=== PATIENT | female | born 1985 | race Caucasian/White ===

== ENCOUNTER 2018-08-22 10:25 | Observation (INO) | payer OTHER, MEDICAID ==
[2018-08-22] MEDS: RINGERS SOLUTION,LACTATED 1,000 ML IV PRN ×3 (10:55→13:17)
[2018-08-22 11:15] LABS: APPEARANCE,URINE CLEAR; BILIRUBIN,URINE NEGATIVE (NEGATIVE); COLOR,URINE STRAW; GLUCOSE, URINE NEGATIVE (NEGATIVE); KETONES,URINE NEGATIVE (NEGATIVE); LEUKOCYTE ESTERASE,URINE NEGATIVE (NEGATIVE); NITRITE,URINE NEGATIVE (NEGATIVE); PROTEIN,URINE NEGATIVE (NEGATIVE); URINE SPECIFIC GRAVITY 1.006; UROBILINOGEN,URINE NEGATIVE mg/dL (<2.0)
[2018-08-22] MEDS ORDERED: NIFEDIPINE 10 MG CAPSULE PO ONE (11:18)
[2018-08-22] MEDS ORDERED: NIFEDIPINE 10 MG CAPSULE ONE (11:20)
[2018-08-22 11:33] LABS: URINE AMPHETAMINES SCREEN NEGATIVE; URINE BARBITURATES SCREEN NEGATIVE; URINE BENZODIAZEPINES SCREEN NEGATIVE; URINE COCAINE SCREEN NEGATIVE; URINE MARIJUANA (THC) SCREEN NEGATIVE; URINE METHADONE SCREEN NEGATIVE; URINE PHENCYCLIDINE SCREEN NEGATIVE
--- NOTE | 2018-08-22 12:09 | RADIOLOGY REPORT (SQ) ---
EXAM DESCRIPTION: U/S OB LIMITED COMPLETED DATE/TIME: 08/22/2018 11:38 am REASON FOR STUDY: contractions COMPARISON: None. TECHNIQUE: Limited transabdominal grayscale ultrasound for evaluation of specific requested obstetri timmy parameters. LIMITATIONS: None. FINDINGS: CERVICAL LENGTH: 4.3 cm. Closed. CK: 12 cm. FHR: 153 beats per minute. PRESENTATION: Cephalic. PLACENTA: Posterior without evidence of abruption or previa. ANATOMY: Not assessed OTHER: No other significant findings. IMPRESSION: LIMITED OBSTETRICAL ULTRASOUND WITH MEASURED PARAMETERS DELINEATED ABOVE. Trimester of : Third trimester - 28 weeks to delivery. TECHNICAL DOCUMENTATION: JOB ID: [id number] [employer]- All Rights Reserved Reading location - IP/workstation name: [email or web address]
[2018-08-22] MEDS ORDERED: TERBUTALINE SULFATE INJ/PF 1 MG/1 ML SDV SUBCUT ONE (12:24)
[2018-08-22] MEDS ORDERED: BETAMET ACET/BETAMET NA INJ 6 MG/1 ML IM ONE (12:24)
[2018-08-22] MEDS ORDERED: TERBUTALINE SULFATE INJ/PF 1 MG/1 ML SDV ONE (12:46)
[2018-08-22] MEDS ORDERED: BETAMET ACET/BETAMET NA INJ 6 MG/1 ML ONE (12:47)
[2018-08-22] MEDS ORDERED: MAGNESIUM SULFATE 4 GM/100 ML RTUPB IV ONE ×2 (14:13)
[2018-08-22] MEDS ORDERED: MAGNESIUM SULFATE 20 GM/500 ML RTUINJ IV ONE (14:13)
[2018-08-22 14:39] LABS: ABSOLUTE BASOPHILS # (AUTO) 0.1 10^3/uL (0.0-0.2); ABSOLUTE MONOCYTES (AUTO) 0.5 10^3/uL (0.1-1.4); BASOPHILS % (AUTO) 0.8 % (0-2); EOSINOPHILS % (AUTO) 0.1 % (0-6); HEMATOCRIT 26.7 % (36.0-47.0); HEMOGLOBIN 8.8 g/dL (12.0-15.5); LYMPHOCYTES % (AUTO) 7.3 % (13-45); MEAN CORPUSCULAR HEMOGLOBIN 23.8 pg (27.0-33.4); MEAN CORPUSCULAR VOLUME 72 fl (80-97); MONOCYTES % (AUTO) 3.4 % (3-13); PLATELET COUNT 214 10^3/uL (150-450); RED CELL DISTRIBUTION WIDTH 15.9 % (11.5-14.0); SEGMENTED NEUTROPHILS % (AUTO) 88.4 % (42-78); TOTAL CELLS COUNTED % (AUTO) 100 %; WHITE BLOOD COUNT 13.6 10^3/uL (4.0-10.5)
[2018-08-22] MEDS: MAGNESIUM SULFATE 20 GM/500 ML RTUINJ IV PRN (14:50)
--- NOTE | 2018-08-22 16:29 | Admission Physical ---
Datetime Report Generated by CPN: 08/22/2018 16:28 CURRENT ADMISSION Chief Complaint: Uterine Contractions Indication for Induction: Not Applicable Admit Impression : , Intrauterine Admit Plan: Admit to Unit; Initiate Labor Protocol ALLERGIES Medication Allergies: No Medication Allergies: No Known Allergies (08/22/2018) Latex: No Latex Allergies Food Allergies: None Environmental Allergies: none OBSTETRICAL HISTORY EDC: 11/01/2018 00:00 : 4 Para: 2 : 2 SAB: 1 Livin Cesareans: 0 Gestational Diabetes: No Rh Sensitization: No Incompetent Cervix: No BEN: No Infertility: No ART Treatment: No Uterine Anomaly: No IUGR: No Hx Previous C/S: No Macrosomia: No Hx Loss/Stillborn: No PIH: No Hx : No Placenta Previa/Abruption: No Depression/PP Depression: Yes PTL/PROM: Yes Post Hemorrhage: No Current Procedures: Ultrasound; NST Obstetrical History Comments: G1- 2006, SAB G2- 2013, 34 weeks, PTL, PROM, PTD, NICU x 1 month G3- 2016, 32 weeks, PTL, PROM, PTD G4- Current SEE RECORDS Alcohol: No Marijuana : No Cocaine: No Other Illicit Drugs: No Cigarettes: Never Smoker. [id number] MEDICAL HISTORY Diabetes: No Blood Transfusion: No Pulmonary Disease (Asthma, TB): No Breast Disease: No Hypertension: No Tack Puller Surgery: No Heart Disease: No Hosp/Surgery: No Autoimmune Disorder: No Anesthetic Complications: No Kidney Disease: No Abnormal Pap Smear: No Neuro/Epilepsy: No Psychiatric Disorders: No Other Medical Diseases: No Hepatitis/Liver Disease: No Significant Family History: No Varicosities/Phlebitis: No Trauma/Violence : No Thyroid Dysfunction: Yes Medical History Comments: Depression 2016, Thyroid elevated TSH and on synthroid, Hospitalizations for childbirth. INFECTIOUS HISTORY Gonorrhea: No Genital Herpes: No Chlamydia: No Tuberculosis: No Syphilis: No Hepatitis: No HIV/AIDS Exposure: No Rash or Viral Illness: No HPV: No PHYSICAL EXAM General: Normal HEENT: Normal Neurologic: Normal Thyroid: Deferred Heart: Normal Lungs: Normal Breast: Deferred Back: Normal Abdomen: Normal Genitourinary Exam: Normal Extremities: Normal DTRs: Normal Pelvic Type: Adequate Physical Exam Comments: pelvis proven to 5#9 Vital Signs: Reviewed; Within Normal Limits VAGINAL EXAM Dilatation: 1 Effacement: 0 Station: -3 Contraction Comments: q4-6 mins FETUS A EGA: 29.6 Monitoring: External US FHR- Baseline: 135 Variability: Moderate 6-25bpm Accelerations: 15X15 Decelerations: None FHR Category: Category I Estimated Weight (gm): 1400 Presentation: Vertex Presentation- Other: by sono Admit Comment: with previous deliveries at 19w 32w and 34w presented at 29+6 with contractions q2 mins, painful. she was given procardia 10mg po, terbutaline 0.25 subcutaneously and betamethasone 12mg IM at 1255. c/w dr reid-pt started on magnesium sulfate for PTL and neurophophylaxis. after magnesium started, contractions spaced to 6mins apart and decreased pain. GBS culture sent to lab. PLANS FOR LABOR AND DELIVERY Labor and Delivery: None Pain Management: Natural Feeding Preference: Formula Benefit of Breast Feed Discussed: Yes Circumcision: N/A INFORMED CONSENT Assignment: Adriana Reid MD Signature: with User ID: [email or web address] : with User ID: [email or web address]
[2018-08-22] MEDS ORDERED: MAG HYDROX/AL HYDROX/SIMETH SUSP 30 ML UDCUP ONE (21:37)
[2018-08-23] MEDS ORDERED: MAGNESIUM SULFATE 20 GM/500 ML RTUINJ IV ONE (01:09)
[2018-08-23] MEDS: MAGNESIUM SULFATE 20 GM/500 ML RTUINJ IV PRN (01:11)
[2018-08-23] MEDS: RINGERS SOLUTION,LACTATED 1,000 ML IV PRN (01:14)
[2018-08-23] MEDS ORDERED: LEVOTHYROXINE SODIUM 0.075 MG TABLET ONE (05:16)
[2018-08-23] MEDS ORDERED: LEVOTHYROXINE SODIUM 0.075 MG TABLET PO SCH (06:00)
[2018-08-23] MEDS ORDERED: BETAMET ACET/BETAMET NA INJ 6 MG/1 ML ONE (12:23)
[2018-08-23] MEDS ORDERED: BETAMET ACET/BETAMET NA INJ 6 MG/1 ML IM ONE (12:30)
--- NOTE | 2018-08-27 07:39 | PDOC DISCHARGE SUMMARY ---
General - Admit/Disc Date/PCP Admission Date/Primary Care Provider: 08/22/18 14:12 Discharge Date: 08/23/18 - Discharge Diagnosis (1) uterine contractions in second trimester, antepartum Is this a current diagnosis for this admission?: Yes - Additional Information Discharge Diet: Regular Discharge Activity: Activity As Tolerated, Pelvic Rest Home Medications: Levothyroxine Sodium [Synthroid 0.075 mg Tablet] 0.075 mg PO DAILY 08/22/18 Pantoprazole Sodium [Protonix] 40 mg PO DAILY 08/22/18 Vit No.130/Iron/Folic [ Vitamins] 1 each PO DAILY 08/22/18 History of Present Illness History of Present Illness: GARLAND LAWSON is a 33 year old female presented to L&D complaining of contractions. Patient stated that she had a history of 2 deliveries. Patient denies spontaneous rupture membranes or leakage of fluid. Patient reported good movement. Hospital Course Hospital Course: Patient was placed on magnesium sulfate until her contractions spaced out. In the meantime, she was given betamethasone 12 mg IM x2, 24 hours apart. On day #2, the patient was weaned down from 2 mg of magnesium sulfate to 1 g and the magnesium was discontinued at approximately 12 PM. Patient was very anxious to leave. Physical Exam - Physical Exam General appearance: PRESENT: no acute distress Respiratory exam: PRESENT: clear to auscultation tavo Cardiovascular exam: PRESENT: RRR GI/Abdominal exam: PRESENT: normal bowel sounds, soft Extremities exam: ABSENT: calf tenderness, clubbing, full ROM, joint swelling, pedal edema, tenderness, +1 edema, +2 edema, other - Gynecological Exam Cervix: normal - No cervical change Result Laboratory Results: 08/22/18 14:30 Impressions: Obstetrics Ultrasound 08/22/18 10:31 IMPRESSION: LIMITED OBSTETRICAL ULTRASOUND WITH MEASURED PARAMETERS DELINEATED ABOVE. Trimester of : Third trimester - 28 weeks to delivery. Plan Discharge Plan: 1. discharge home 2. Follow-up in the office as soon as possible 3. Strict pelvic rest Time Spent: Less than 30 Minutes
== END 2018-08-23 12:39 | disposition home or self-care (01) ==
LOC: LC 10:25 → INTOOBSV 14:12 → LR 14:12
PROVIDERS: ADMIT Obstetrics & Gynecology; ATTEND Obstetrics & Gynecology
DX: O62.9 Abnormality of forces of labor, unspecified (principal); O09.212 Supervision of pregnancy with history of pre-term labor, second trimester; Z79.899 Other long term (current) drug therapy; O99.282 Endocrine, nutritional and metabolic diseases complicating pregnancy, second trimester; R94.6 Abnormal results of thyroid function studies; Z3A.28 28 weeks gestation of pregnancy
CPT/HCPCS: 94760 ×2; 86900; 86901; 36415; 86850; 85025; 86592; 81001; 87081; 80307; 76815; J3475 ×3; J3490; J0702 ×2; J3105; G0378; G0379

== ENCOUNTER 2018-10-17 03:32 | Inpatient (IN) | payer OTHER, MEDICAID ==
[2018-10-17 04:24] LABS: APPEARANCE,URINE CLOUDY; BILIRUBIN,URINE NEGATIVE (NEGATIVE); COLOR,URINE YELLOW; GLUCOSE, URINE NEGATIVE (NEGATIVE); KETONES,URINE NEGATIVE (NEGATIVE); LEUKOCYTE ESTERASE,URINE SMALL (NEGATIVE); NITRITE,URINE NEGATIVE (NEGATIVE); PROTEIN,URINE 30 mg/dL (NEGATIVE); URINE SPECIFIC GRAVITY 1.015; UROBILINOGEN,URINE NEGATIVE mg/dL (<2.0)
[2018-10-17 04:42] LABS: URINE AMPHETAMINES SCREEN NEGATIVE; URINE BARBITURATES SCREEN NEGATIVE; URINE BENZODIAZEPINES SCREEN NEGATIVE; URINE COCAINE SCREEN NEGATIVE; URINE MARIJUANA (THC) SCREEN NEGATIVE; URINE METHADONE SCREEN NEGATIVE; URINE PHENCYCLIDINE SCREEN NEGATIVE
[2018-10-17] MEDS ORDERED: OXYTOCIN/NORMAL SALINE 20 UNIT/1,000 ML RTUINJ ONE (04:44)
[2018-10-17] MEDS ORDERED: LIDOCAINE 1% INJ-PF (10 MG/ML) 30 ML SDV ONE (04:44)
[2018-10-17] MEDS ORDERED: MISOPROSTOL 0.2 MG TABLET ONE (04:44)
[2018-10-17] MEDS ORDERED: OXYTOCIN 10 UNIT/ML VIAL ONE (04:44)
[2018-10-17] MEDS ORDERED: PHENYLEPHRINE HCL INJ/PF 10 MG/1 ML SDV ONE (04:46)
[2018-10-17] MEDS ORDERED: LIDOCAINE 2%/EPINEPHRINE INJ 20 ML VIAL ONE (04:46)
[2018-10-17] MEDS ORDERED: FENTANYL CITRATE INJ/PF 100 MCG/2 ML AMPUL ONE (04:47)
[2018-10-17] MEDS ORDERED: FENTANYL/BUPIVACAINE/NS/PF 300 MCG/150 ML RTUINJ EPI ONE (04:47)
[2018-10-17] MEDS ORDERED: BUPIVACAINE HCL 0.25 % INJ/PF (2.5 MG/1 ML) 30 ML VIAL ONE (04:47)
[2018-10-17] MEDS ORDERED: EPHEDRINE SULFATE INJ 50 MG/1 ML AMPULE ONE (04:47)
[2018-10-17 05:34] LABS: ABSOLUTE BASOPHILS # (AUTO) 0.1 10^3/uL (0.0-0.2); ABSOLUTE EOSINOPHILS # (AUTO) 0.1 10^3/uL (0.0-0.6); ABSOLUTE LYMPHOCYTES (AUTO) 2.8 10^3/uL (0.5-4.7); ABSOLUTE MONOCYTES (AUTO) 1.1 10^3/uL (0.1-1.4); ABSOLUTE NEUT (AUTO) 6.3 10^3/uL (1.7-8.2); BASOPHILS % (AUTO) 1.1 % (0-2); EOSINOPHILS % (AUTO) 0.7 % (0-6); HEMATOCRIT 26.3 % (36.0-47.0); HEMOGLOBIN 8.6 g/dL (12.0-15.5); LYMPHOCYTES % (AUTO) 26.7 % (13-45); MEAN CORPUSCULAR HEMOGLOBIN 21.2 pg (27.0-33.4); MEAN CORPUSCULAR HGB CONC 32.7 g/dL (32.0-36.0); MEAN CORPUSCULAR VOLUME 65 fl (80-97); MONOCYTES % (AUTO) 10.6 % (3-13); PLATELET COUNT 209 10^3/uL (150-450); RED BLOOD COUNT 4.06 10^6/uL (3.72-5.28); RED CELL DISTRIBUTION WIDTH 17.4 % (11.5-14.0); SEGMENTED NEUTROPHILS % (AUTO) 60.9 % (42-78); TOTAL CELLS COUNTED % (AUTO) 100 %; WHITE BLOOD COUNT 10.3 10^3/uL (4.0-10.5)
--- NOTE | 2018-10-17 05:39 | Admission Physical ---
Datetime Report Generated by CPN: 10/17/2018 05:38 CURRENT ADMISSION Chief Complaint: Uterine Contractions; Suspected Ruptured Membranes Indication for Induction: Not Applicable Admit Impression : Term, Intrauterine ; Active Labor; Ruptured Membranes Admit Plan: Admit to Unit; Initiate Labor Protocol ALLERGIES Medication Allergies: No Medication Allergies: No Known Allergies (10/17/2018) Latex: Unknown Food Allergies: None Environmental Allergies: none OBSTETRICAL HISTORY EDC: 11/01/2018 00:00 : 4 Para: 2 Term: 0 : 2 SAB: 1 IAB: 0 Ectopic: 0 Livin Cesareans: 0 VBACs: 0 Multiple Births: 0 Gestational Diabetes: No Rh Sensitization: No Incompetent Cervix: No BEN: No Infertility: No ART Treatment: No Uterine Anomaly: No IUGR: No Hx Previous C/S: No Macrosomia: No Hx Loss/Stillborn: No PIH: No Hx : No Placenta Previa/Abruption: No Depression/PP Depression: Yes PTL/PROM: Yes Post Hemorrhage: No Current Procedures: Ultrasound; NST Obstetrical History Comments: G1- 2006, SAB G2- 2013, 34 weeks, PTL, PROM, PTD, NICU x 1 month G3- 2016, 32 weeks, PTL, PROM, PTD G4- Current SEE RECORDS Alcohol: No Marijuana : No Cocaine: No Other Illicit Drugs: No Cigarettes: Never Smoker. [id number] MEDICAL HISTORY Diabetes: No Blood Transfusion: No Pulmonary Disease (Asthma, TB): No Breast Disease: No Hypertension: No Fast Food Worker Surgery: No Heart Disease: No Hosp/Surgery: No Autoimmune Disorder: No Anesthetic Complications: No Kidney Disease: No Abnormal Pap Smear: No Neuro/Epilepsy: No Psychiatric Disorders: No Other Medical Diseases: No Hepatitis/Liver Disease: No Significant Family History: No Varicosities/Phlebitis: No Trauma/Violence : No Thyroid Dysfunction: Yes Medical History Comments: Depression 2016, Thyroid elevated TSH and on synthroid, Hospitalizations for childbirth. INFECTIOUS HISTORY Gonorrhea: No Genital Herpes: No Chlamydia: No Tuberculosis: No Syphilis: No Hepatitis: No HIV/AIDS Exposure: No Rash or Viral Illness: No HPV: No PHYSICAL EXAM General: Normal HEENT: Normal Neurologic: Normal Thyroid: Normal Heart: Normal Lungs: Normal Breast: Normal Back: Normal Abdomen: Normal Genitourinary Exam: Normal Extremities: Normal DTRs: Normal Pelvic Type: Adequate Physical Exam Comments: pelvis proven to 5#9 Vital Signs: Reviewed; Within Normal Limits VAGINAL EXAM Dilatation: 7 Effacement: 90 Station: -1 Contraction Comments: q4-6 mins MEMBRANES Pooling: Positive Membranes: Ruptured Amniotic Fluid Color: Clear FETUS A EGA: 37.6 Monitoring: External US FHR- Baseline: 130 Variability: Moderate 6-25bpm Accelerations: 15X15 Decelerations: None FHR Category: Category I Estimated Weight (gm): 3500 Presentation: Vertex Presentation- Other: by sono Admit Comment: with previous deliveries at 19w 32w and 34w presented at 29+6 with contractions q2 mins, painful. she was given procardia 10mg po, terbutaline 0.25 subcutaneously and betamethasone 12mg IM at 1255. c/w dr reid-pt started on magnesium sulfate for PTL and neurophophylaxis. after magnesium started, contractions spaced to 6mins apart and decreased pain. GBS culture sent to lab. PLANS FOR LABOR AND DELIVERY Labor and Delivery: None Pain Management: Natural Feeding Preference: Formula Benefit of Breast Feed Discussed: Yes Circumcision: N/A INFORMED CONSENT Assignment: Adriana Reid MD Signature: with User ID: [email or web address] : with User ID: [email or web address]
[2018-10-17] MEDS ORDERED: OXYTOCIN/NORMAL SALINE 20 UNIT/1,000 ML RTUINJ IV PRN ×2 (07:27→07:58)
[2018-10-17 07:44] LABS: ANISOCYTOSIS 1+; HYPOCHROMASIA 1+; OVALOCYTES 1+; PLATELET COMMENT ADEQUATE; POIKILOCYTOSIS 1+; POLYCHROMASIA SLIGHT
[2018-10-17] MEDS ORDERED: ZOLPIDEM TARTRATE 5 MG TABLET PO PRN (07:58)
[2018-10-17] MEDS ORDERED: DIPH/PERTUSS(ACELL)/TETANUS VAC/PF 0.5 ML SYR (>=10YO) IM PRN (07:58)
[2018-10-17] MEDS ORDERED: PROMETHAZINE HCL INJ 25 MG/1 ML VIAL IV PRN (07:58)
[2018-10-17] MEDS ORDERED: DIBUCAINE 1% OINTMENT 56 GM TP PRN (07:58)
[2018-10-17] MEDS ORDERED: PROMETHAZINE HCL 25 MG SUPP.RECT PR PRN (07:58)
[2018-10-17] MEDS ORDERED: GLYCERIN/WITCH HAZEL LEAF 1 EACH MED..PAD TP PRN (07:58)
[2018-10-17] MEDS ORDERED: ACETAMINOPHEN WITH CODEINE #3 TABLET PO PRN ×2 (07:58)
[2018-10-17] MEDS ORDERED: NA PHOS,M-B/NA PHOS,DI-BA (ADULT) 133 ML ENEMA PR PRN (07:58)
[2018-10-17] MEDS ORDERED: DIPHENHYDRAMINE HCL 25 MG CAPSULE PO PRN (07:58)
[2018-10-17] MEDS ORDERED: ACETAMINOPHEN 650 MG SUPP.RECT PR PRN (07:58)
[2018-10-17] MEDS ORDERED: MEASLES,MUMPS&RUBELLA VACC/PF 0.5 ML VIAL SUBCUT PRN (07:58)
[2018-10-17] MEDS ORDERED: PSEUDOEPHEDRINE HCL 30 MG TABLET PO PRN (07:58)
[2018-10-17] MEDS ORDERED: MAGNESIUM HYDROXIDE SUSP 30 ML UDCUP PO PRN (07:58)
[2018-10-17] MEDS ORDERED: PROMETHAZINE HCL 25 MG TABLET PO PRN (07:58)
[2018-10-17] MEDS ORDERED: BENZOCAINE/MENTHOL AEROSOL SPRAY 56 ML TOP PRN (07:58)
--- NOTE | 2018-10-17 08:26 | Warning Signs in Babies ---
VOD Warning Signs Datetime Report Generated by [facility]: 10/17/2018 08:25 VOD#608 -Warning Signs in Babies: Viewed with Parent(s)/Family (08/22/2018 10:30:WILMAN Camejo)
--- NOTE | 2018-10-17 09:02 | Warning Signs in Babies ---
VOD Warning Signs Datetime Report Generated by [facility]: 10/17/2018 09:02 VOD#608 -Warning Signs in Babies: Viewed with Parent(s)/Family (10/17/2018 07:42:WILMAN Camejo)
[2018-10-17] MEDS ORDERED: PRENATAL VITAMIN W DHA CAPSULE PO ONE (10:25)
[2018-10-17] MEDS ORDERED: SENNOSIDES/DOCUSATE 8.6-50 MG 1 EACH TABLET ONE ×2 (10:25→10:29)
[2018-10-17] MEDS ORDERED: DOCUSATE SODIUM 100 MG CAPSULE ONE (10:26)
[2018-10-17] MEDS ORDERED: FAMOTIDINE 20 MG TABLET ONE (10:26)
[2018-10-17] MEDS ORDERED: FERROUS SULFATE 325 MG TABLET PO ONE (10:26)
--- NOTE | 2018-10-17 12:19 | Delivery Summary ---
Del Sum A-C Datetime Report Generated by CPN: 10/17/2018 12:19 DELIVERY PERSONNEL DELIVERY PERSONNEL: [id number] Delivery Doctor:: Maritza Mendze MD Labor and Delivery Nurse:: WILMAN Camejo Labor and Delivery Nurse:: Zuleika Mendez RN Student Observers:: Larissa Norton RN Contact Centre Supervisor/HOOKER LASTER: Bozena Millsillo, SCHOOL BUS DRIVER MATERNAL INFORMATION Delivery Anesthesia: Epidural Medications After Delivery: Pitocin Drip 20 Units/1000ml NSS Meds After Delivery Comment: Pitocin 20 units in 1 L NS bolusing per order Estimated Blood Loss (ml): 200 Maternal Complications: Precipitous Labor (<3hrs) LABOR SUMMARY EDC: 11/01/2018 00:00 No. Babies in Womb: 1 Attempted: No Labor Anesthesia: None LABOR INFORMATION Reason for Induction: Not Applicable Onset of Labor: 10/17/2018 03:00 Complete Dilatation: 10/17/2018 02:30 Oxytocin: N/A Group B Beta Strep: Negative Antibiotics # of Doses: 0 Antibiotics Time of Last Dose: N/A Name of Antibiotic Given: N/A Steroids Given: None Reason Steroids Not Administered: Not Applicable MEMBRANES Membranes Rupture Method: Spontaneous Rupture of Membranes: 10/17/2018 02:30 Length of Rupture (hr): 5.32 Amniotic Fluid Color: Clear Amniotic Fluid Amount: Moderate Amniotic Fluid Odor: Normal STAGES OF LABOR Stage 1 hr: 0 Stage 1 min: -30 Stage 2 hr: 5 Stage 2 min: 19 Stage 3 hr: 0 Stage 3 min: 4 Total Time in Labor hr: 4 Total Time in Labor min: 53 VAGINAL DELIVERY Episiotomy: None Laceration #1: None Laceration Extension #1: N/A Laceration Repair: Not Applicable Sponge Count Correct: Yes Sharps Count Correct: Yes CSECTION DELIVERY Primary Indication: N/A Secondary Indication: N/A CSection Incidence: N/A Labor: N/A Elective: N/A CSection Incision: N/A BABY A INFORMATION Infant Delivery Date/Time: 10/17/2018 07:49 Method of Delivery: Vaginal Born in Route : No : N/A Forceps: N/A Vacuum Extraction: N/A Shoulder Dystocia : No PRESENTATION/POSITION BABY A Presentation: Cephalic Cephalic Presentation: Vertex Vertex Position: Right Occipital Anterior Breech Presentation: N/A PLACENTA INFORMATION BABY A Placenta Delivery Time : 10/17/2018 07:53 Placenta Method of Delivery: Spontaneous Placenta Status: Delivered SCORES BABY A Heart Rate 1 min: >100 bpm Resp Effort 1 min: Good Cry Reflex Irritability 1 min: Cough or Sneeze or Pulls Away Muscle Tone 1 min: Active Motion Color 1 min: Blue/Pale Resuscitation Effort 1 min: Tactile Stimulation SCORE 1 MIN: 8 Heart Rate 5 min: >100 bpm Resp Effort 5 min: Good Cry Reflex Irritability 5 min: Cough or Sneeze or Pulls Away Muscle Tone 5 min: Active Motion Color 5 min: Body Gallant, Extremities Blue Resuscitation Effort 5 min: N/A SCORE 5 MIN: 9 INFANT INFORMATION BABY A Gestational Age at Delivery: 37.6 Gestational Status: Early Term- 37- 38.6 Weeks Outcome : Liveborn Condition : Stable Infant Sex: Female IDENTIFICATION BABY A Infant Verification Date/Time: 10/17/2018 08:25 ID Band Number: [id number] Mother's Name Verified: Yes Infant RN Verifying Infant: moreluisa valladares rnc Additional Verifying Personnel: larissa norton rn WEIGHT/LENGTH BABY A Infant Birthweight (gm): 3470 Infant Weight (lb): 7 Infant Weight (oz): 10 Length (in): 19.75 Length (cm): 50.17 CORD INFORMATION BABY A No. Cord Vessels: 3 Nuchal Cord : N/A Cord Blood Taken: Yes-For Storage (Mom's Blood type +) Infant Suction: None ASSESSMENT BABY A Complications: None Physical Findings at Delivery: Within Normal Limits Infant Respirations: Appears Normal Skin to Skin: Yes Skin to Skin Time (min): 45 Health Evaluator/ALS Called : No Care By: Brandy Mendez RN Transferred To: Remains with Mother BABY B INFORMATION : N/A SIGNATURES : I was personally available for consultation and serving as supervising physician for the MLP.
[2018-10-17] MEDS: FAMOTIDINE 20 MG TABLET PO SCH ×2 (12:37→22:24)
[2018-10-17] MEDS: FERROUS SULFATE 325 MG TABLET PO SCH ×2 (12:37→17:34)
[2018-10-17] MEDS: DOCUSATE SODIUM 100 MG CAPSULE PO SCH ×2 (12:37→17:33)
[2018-10-17] MEDS: PRENATAL VITAMIN W DHA CAPSULE PO SCH (12:38)
[2018-10-17] MEDS: SENNOSIDES/DOCUSATE 8.6-50 MG 1 EACH TABLET PO SCH (12:38)
[2018-10-17] MEDS ORDERED: IBUPROFEN 800 MG TABLET ONE (14:05)
[2018-10-17] MEDS: IBUPROFEN 800 MG TABLET PO SCH ×2 (14:08→22:24)
[2018-10-18] MEDS: IBUPROFEN 800 MG TABLET PO SCH ×2 (05:16→14:46)
[2018-10-18 08:14] LABS: HEMATOCRIT 24.7 % (36.0-47.0); MEAN CORPUSCULAR HEMOGLOBIN 20.9 pg (27.0-33.4); MEAN CORPUSCULAR HGB CONC 31.9 g/dL (32.0-36.0); MEAN CORPUSCULAR VOLUME 66 fl (80-97); PLATELET COUNT 153 10^3/uL (150-450); RED BLOOD COUNT 3.77 10^6/uL (3.72-5.28); RED CELL DISTRIBUTION WIDTH 17.7 % (11.5-14.0); WHITE BLOOD COUNT 11.9 10^3/uL (4.0-10.5)
[2018-10-18 08:15] LABS: HEMOGLOBIN 7.9 g/dL (12.0-15.5)
[2018-10-18] MEDS: DOCUSATE SODIUM 100 MG CAPSULE PO SCH ×2 (09:26→18:14)
[2018-10-18] MEDS: PRENATAL VITAMIN W DHA CAPSULE PO SCH (09:26)
[2018-10-18] MEDS: FAMOTIDINE 20 MG TABLET PO SCH (09:26)
[2018-10-18] MEDS: FERROUS SULFATE 325 MG TABLET PO SCH ×2 (09:26→18:14)
[2018-10-18] MEDS: SENNOSIDES/DOCUSATE 8.6-50 MG 1 EACH TABLET PO SCH (09:27)
[2018-10-18] MEDS ORDERED: MEASLES,MUMPS&RUBELLA VACC/PF 0.5 ML VIAL SUBCUT PRN (10:30)
[2018-10-18] MEDS ORDERED: ZOLPIDEM TARTRATE 5 MG TABLET PO PRN (10:30)
[2018-10-18] MEDS ORDERED: PROMETHAZINE HCL INJ 25 MG/1 ML VIAL IV PRN (10:30)
[2018-10-18] MEDS ORDERED: IRON SUCROSE COMPLEX INJ/PF 100 MG/5 ML SDV IV ONE (11:00)
--- NOTE | 2018-10-18 12:50 | PDOC PROGRESS REPORT ---
Subjective-OB Progress Note for:: 10/18/18 - PP day #1, A+ Rubella Immune, bottlefeeding, anemia . Pt refused iron transfussion ordered by Dr Miller today. Subjective: Pt states she would like to go home today Physical Exam (OB) Vital Signs: Temp Pulse Resp BP Pulse Ox 98.5 F 65 16 117/75 98 10/18/18 08:01 10/18/18 08:01 10/18/18 08:01 10/18/18 08:01 10/18/18 08:01 Intake & Output 10/17/18 10/18/18 10/19/18 06:59 06:59 06:59 Weight 83.5 kg - General General Appearance: Appears well, Alert In distress: None - PIH/Pre-Eclampsia DTR's: 2 + Clonus: Negative Headache: Absent Epigastric Pain: No Visual Changes: No - Lochia Lochia Amount: Small 10-25 ml Lochia Color: Rubra/Red - Abdomen Description: Soft, Round Hernia Present: No Fundal Description: Firm, Midline Fundal Height: u/u - u/2 - Respiratory Respiratory Status: No respiratory distress - Abdominal Inspection: Normal Distension: No distension - Genitourinary Genitourinary Note: voiding - Extremities Upper extremity: Normal inspection Lower extremities: Normal inspection - Neurological Cognition: Normal Orientation: AAOx4 - Psychological Associated symptoms: Normal affect, Normal mood - Skin Skin Temperature: Warm Skin Moisture: Dry Objective-Diagnostic Laboratory: 10/18/18 07:20 10/18/18 07:20 WBC 11.9 H RBC 3.77 Hgb 7.9 L Hct 24.7 L MCV 66 L MCH 20.9 L MCHC 31.9 L RDW 17.7 H Plt Count 153 Assessment and Plan(PN) - Assessment and Plan (1) (normal spontaneous vaginal delivery) Is this a current diagnosis for this admission?: Yes (2) Anemia affecting Qualifiers: Trimester: third trimester Qualified Code(s): O99.013 - Anemia complicating , third trimester Is this a current diagnosis for this admission?: Yes - Time Spent with Patient Time with patient: Less than 15 minutes - Will not send pt home today since no iron infusion was done. Will see how pt tolerates her low hemaglobin today, then plan to d/c home tomorrow. Plan reviewed w/ Dr Miller. Medications reviewed and adjusted accordingly: Yes - Disposition Anticipated Discharge: Home Within: within 24 hours
[2018-10-18 20:46] VITALS: BP 124/62
--- NOTE | 2018-10-22 12:40 | PDOC DISCHARGE SUMMARY ---
General - Admit/Disc Date/PCP Admission Date/Primary Care Provider: 10/17/18 04:32 Discharge Date: 10/18/18 - Discharge Diagnosis (1) Anemia affecting Is this a current diagnosis for this admission?: Yes (2) (normal spontaneous vaginal delivery) Is this a current diagnosis for this admission?: Yes (3) uterine contractions in second trimester, antepartum Is this a current diagnosis for this admission?: No - Additional Information Discharge Diet: Regular Discharge Activity: Activity As Tolerated, No Lifting Over 10 Pounds, No Lifting /Push/Pulling Home Medications: Levothyroxine Sodium [Synthroid 0.075 mg Tablet] 0.075 mg PO DAILY 08/22/18 Pantoprazole Sodium [Protonix] 40 mg PO DAILY 08/22/18 Vit No.130/Iron/Folic [ Vitamins] 1 each PO DAILY 08/22/18 History of Present Illness Patient complains of: contractions History of Present Illness: GARLAND NICOLAS is a 33 year old presented to L&D c/o contractions. She has an IUP a4 37.6 weeks. She believes that her water may have broken. Physical Exam - Physical Exam Vital Signs: Temp Pulse Resp BP Pulse Ox 98.5 F 65 16 124/62 98 10/18/18 20:35 10/18/18 20:35 10/18/18 20:35 10/18/18 20:35 10/18/18 20:35 General appearance: PRESENT: no acute distress Respiratory exam: PRESENT: clear to auscultation tavo Cardiovascular exam: PRESENT: RRR, tachycardia GI/Abdominal exam: PRESENT: normal bowel sounds, soft Musculoskeletal exam: ABSENT: ambulatory, deformity, dislocation, full ROM, normal inspection, tenderness, other Result Laboratory Results: 10/18/18 07:20 Plan Discharge Plan: 1. Discharge home 2. Continue iron Time Spent: Less than 30 Minutes
== END 2018-10-18 21:10 | disposition home or self-care (01) | DRG 807 ==
LOC: LC 03:32 → LR 04:32 → 2N 14:30
PROVIDERS: ADMIT Obstetrics & Gynecology; ATTEND Obstetrics & Gynecology
PROC: 10E0XZZ Delivery of Products of Conception, External Approach (ICD-10-PCS; principal; 2018-10-17)
PROC: 4A1HXCZ Monitoring of Products of Conception, Cardiac Rate, External Approach (ICD-10-PCS; 2018-10-17)
PROC: 3E0234Z Introduction of Serum, Toxoid and Vaccine into Muscle, Percutaneous Approach (ICD-10-PCS; 2018-10-18)
DX: O62.3 Precipitate labor (principal); Z37.0 Single live birth; O99.02 Anemia complicating childbirth; D64.9 Anemia, unspecified; Z28.21 Immunization not carried out because of patient refusal; Z3A.37 37 weeks gestation of pregnancy
CPT/HCPCS: 36415; 80307; 81005; 84112; 85025; 85027; 86592; 86850; 86900; 86901; 90715; J2370; J2590; J3010; J3490

== ENCOUNTER 2020-01-29 10:19 | Inpatient (IN) | payer BC, MEDICAID ==
[2020-01-29 10:54] LABS: APPEARANCE,URINE CLOUDY; BILIRUBIN,URINE NEGATIVE (NEGATIVE); COLOR,URINE YELLOW; GLUCOSE, URINE NEGATIVE (NEGATIVE); KETONES,URINE NEGATIVE (NEGATIVE); LEUKOCYTE ESTERASE,URINE SMALL (NEGATIVE); NITRITE,URINE NEGATIVE (NEGATIVE); PROTEIN,URINE 30 mg/dL (NEGATIVE); URINE SPECIFIC GRAVITY 1.014; UROBILINOGEN,URINE NEGATIVE mg/dL (<2.0)
[2020-01-29] MEDS ORDERED: RINGERS SOLUTION,LACTATED 1,000 ML IV ONE (10:55)
[2020-01-29] MEDS ORDERED: RINGERS SOLUTION,LACTATED 1,000 ML IV PRN (10:55)
[2020-01-29] MEDS ORDERED: PENICILLIN G POTASSIUM 5,000,000 UNIT in DEXTROSE 5%-WATER 100 ML IV ONE (10:55)
[2020-01-29] MEDS ORDERED: BETAMET ACET/BETAMET NA INJ 6 MG/1 ML IM ONE (11:08)
--- NOTE | 2020-01-29 11:08 | Admission Physical ---
Datetime Report Generated by CPN: 01/29/2020 11:07 CURRENT ADMISSION Chief Complaint: Suspected Ruptured Membranes Indication for Induction: Not Applicable Admit Impression : , Intrauterine ; No Active Labor; Ruptured Membranes Admit Plan: Admit to Unit; Initiate Labor Protocol ALLERGIES Medication Allergies: No Known Allergies (10/17/2018) OBSTETRICAL HISTORY EDC: 02/24/2020 00:00 : 5 Para: 3 : 3 SAB: 1 Livin PHYSICAL EXAM General: Normal HEENT: Normal Neurologic: Normal Thyroid: Deferred Heart: Normal Lungs: Normal Breast: Deferred Back: Normal Abdomen: Normal Genitourinary Exam: Normal Extremities: Normal DTRs: Normal Pelvic Type: Adequate Vital Signs: Reviewed VAGINAL EXAM Dilatation: 3 Effacement: 50 Station: -2 Contraction Comments: q 2-5 MEMBRANES Membranes: Ruptured Amniotic Fluid Color: Clear FETUS A EGA: 36.2 Monitoring: External US FHR- Baseline: 130 Variability: Moderate 6-25bpm Accelerations: 15X15 Decelerations: None Presentation: Vertex Admit Comment: 34yo at 36+2ega presents for LOF at approx 0300 this am. Clear fluid. GBS unknown. GBS and GC/CT collected. Actimprom positive. H/o PPROM x 2 with PTD x 2. PCN for GBS unknown. NUrsery notified. Cvx favorable. Will begin Pitocin and PCN. Hypothyroid - on synthroid. Admit and anticipate . 1hr GTT 116. H/o anxiety and depression on Wellbutrin - not currently on meds. Will place sr. merchandise planner. INFORMED CONSENT Informed Consent Obtained: Vaginal Delivery; Risks, Benefits and Alternatives Discussed Signature: with User ID: [email or web address]
[2020-01-29] MEDS ORDERED: BETAMET ACET/BETAMET NA INJ 6 MG/1 ML ONE (11:09)
[2020-01-29] MEDS ORDERED: PENICILLIN G-K 5 MILLION UNIT VIAL ONE (11:18)
[2020-01-29 11:27] LABS: URINE AMPHETAMINES SCREEN NEGATIVE; URINE BARBITURATES SCREEN NEGATIVE; URINE BENZODIAZEPINES SCREEN NEGATIVE; URINE COCAINE SCREEN NEGATIVE; URINE MARIJUANA (THC) SCREEN NEGATIVE; URINE METHADONE SCREEN NEGATIVE; URINE PHENCYCLIDINE SCREEN NEGATIVE
[2020-01-29 11:49] LABS: ABSOLUTE BASOPHILS # (AUTO) 0.1 10^3/uL (0.0-0.2); ABSOLUTE EOSINOPHILS # (AUTO) 0.1 10^3/uL (0.0-0.6); ABSOLUTE LYMPHOCYTES (AUTO) 1.7 10^3/uL (0.5-4.7); ABSOLUTE MONOCYTES (AUTO) 0.9 10^3/uL (0.1-1.4); ABSOLUTE NEUT (AUTO) 7.8 10^3/uL (1.7-8.2); BASOPHILS % (AUTO) 0.9 % (0-2); EOSINOPHILS % (AUTO) 0.8 % (0-6); HEMATOCRIT 27.1 % (36.0-47.0); HEMOGLOBIN 8.5 g/dL (12.0-15.5); LYMPHOCYTES % (AUTO) 15.9 % (13-45); MEAN CORPUSCULAR HEMOGLOBIN 20.2 pg (27.0-33.4); MEAN CORPUSCULAR HGB CONC 31.5 g/dL (32.0-36.0); MONOCYTES % (AUTO) 8.5 % (3-13); PLATELET COUNT 215 10^3/uL (150-450); RED BLOOD COUNT 4.22 10^6/uL (3.72-5.28); RED CELL DISTRIBUTION WIDTH 17.1 % (11.5-14.0); SEGMENTED NEUTROPHILS % (AUTO) 73.9 % (42-78); TOTAL CELLS COUNTED % (AUTO) 100 %; WHITE BLOOD COUNT 10.5 10^3/uL (4.0-10.5)
[2020-01-29 11:55] LABS: MEAN CORPUSCULAR VOLUME 64 fl (80-97)
[2020-01-29 12:10] LABS: ANISOCYTOSIS 1+
[2020-01-29 12:11] LABS: PLATELET COMMENT ADEQUATE
[2020-01-29 12:12] LABS: HYPOCHROMASIA SLIGHT; OVALOCYTES SLIGHT; POIKILOCYTOSIS SLIGHT; POLYCHROMASIA SLIGHT
[2020-01-29] MEDS ORDERED: MISOPROSTOL 0.2 MG TABLET ONE (12:53)
[2020-01-29] MEDS ORDERED: OXYTOCIN 10 UNIT/ML VIAL ONE (12:53)
[2020-01-29] MEDS ORDERED: LIDOCAINE 1% INJ-PF (10 MG/ML) 30 ML SDV ONE (12:53)
[2020-01-29] MEDS ORDERED: OXYTOCIN/0.9 % SODIUM CHLORIDE 30 UNIT/500 ML RTUINJ ONE (12:53)
[2020-01-29 12:54] LABS: CHLAM PCR NOT DETECTED (NOT DETECT)
[2020-01-29] MEDS ORDERED: OXYTOCIN/0.9 % SODIUM CHLORIDE 30 UNIT/500 ML RTUINJ IV PRN ×2 (13:23→15:59)
--- NOTE | 2020-01-29 14:15 | Warning Signs in Babies ---
VOD Warning Signs Datetime Report Generated by N: 01/29/2020 14:15 VOD#608 -Warning Signs in Babies: Viewed with Parent(s)/Family (01/29/2020 10:31:Yosvany Gonzalez RN)
--- NOTE | 2020-01-29 14:17 | Warning Signs in Babies ---
VOD Warning Signs Datetime Report Generated by N: 01/29/2020 14:17 VOD#608 -Warning Signs in Babies: Viewed with Parent(s)/Family (01/29/2020 14:16:Yosvany Gonzalez RN)
[2020-01-29] MEDS ORDERED: PENICILLIN G POTASSIUM 2,500,000 UNIT in DEXTROSE 5%-WATER 50 ML IV SCH (14:57)
[2020-01-29] MEDS ORDERED: EPHEDRINE SULFATE INJ 50 MG/1 ML AMPULE ONE (15:21)
[2020-01-29] MEDS ORDERED: FENTANYL/BUPIVACAINE/NS/PF 300 MCG/150 ML RTUINJ EPI ONE (15:22)
[2020-01-29] MEDS ORDERED: BUPIVACAINE HCL 0.25 % INJ/PF (2.5 MG/1 ML) 30 ML VIAL ONE (15:22)
[2020-01-29] MEDS ORDERED: DIPHENHYDRAMINE HCL 25 MG CAPSULE PO PRN (15:59)
[2020-01-29] MEDS ORDERED: ACETAMINOPHEN WITH CODEINE #3 TABLET PO PRN ×2 (15:59)
[2020-01-29] MEDS ORDERED: PROMETHAZINE HCL 25 MG SUPP.RECT PR PRN (15:59)
[2020-01-29] MEDS ORDERED: BENZOCAINE/MENTHOL AEROSOL SPRAY 56 ML TOP PRN (15:59)
[2020-01-29] MEDS ORDERED: MAGNESIUM HYDROXIDE SUSP 30 ML UDCUP PO PRN (15:59)
[2020-01-29] MEDS ORDERED: GLYCERIN/WITCH HAZEL LEAF 1 EACH MED..WIPE TP PRN (15:59)
[2020-01-29] MEDS ORDERED: NA PHOS,M-B/NA PHOS,DI-BA (ADULT) 133 ML ENEMA PR PRN (15:59)
[2020-01-29] MEDS ORDERED: PROMETHAZINE HCL 25 MG TABLET PO PRN (15:59)
[2020-01-29] MEDS ORDERED: MEASLES,MUMPS&RUBELLA VACC/PF 0.5 ML VIAL SUBCUT PRN (15:59)
[2020-01-29] MEDS ORDERED: PSEUDOEPHEDRINE HCL 30 MG TABLET PO PRN (15:59)
[2020-01-29] MEDS ORDERED: ACETAMINOPHEN 325 MG TABLET PO PRN (15:59)
[2020-01-29] MEDS ORDERED: DIPH/PERTUSS(ACELL)/TETANUS VAC/PF 0.5 ML SYR (>=10YO) IM PRN (15:59)
[2020-01-29] MEDS ORDERED: PROMETHAZINE HCL INJ 25 MG/1 ML VIAL IV PRN (15:59)
[2020-01-29] MEDS ORDERED: DIBUCAINE 1% OINTMENT 28 GM TP PRN (15:59)
[2020-01-29] MEDS ORDERED: ZOLPIDEM TARTRATE 5 MG TABLET PO PRN (15:59)
[2020-01-29] MEDS: DOCUSATE SODIUM 100 MG CAPSULE PO SCH (18:09)
[2020-01-29] MEDS: FERROUS SULFATE 325 MG TABLET PO SCH (18:09)
--- NOTE | 2020-01-29 18:54 | Delivery Summary ---
Del Sum A-C Datetime Report Generated by CPN: 01/29/2020 18:54 DELIVERY PERSONNEL DELIVERY PERSONNEL: [id number] Delivery Doctor:: Gayathri Reyes, CNBrandy Labor and Delivery Nurse:: Yosvany Gonzalez, belt buckle maker Nurse:: Julianna Harley RNC Nursery Nurse:: Roxy Rose RN Nursery Nurse:: Snow Jensen Sewing Machine Operator Semiautomatic/VEHICLE GLASS TECHNICIAN: Vanessa Hammonds CNA II Sewing Machine Operator Semiautomatic/VEHICLE GLASS TECHNICIAN: Meena Salinas, WHEEL ALIGNMENT TECHNICIAN Additional Personnel: : Ruslan Grande, RN MATERNAL INFORMATION Delivery Anesthesia: Epidural Medications After Delivery: Pitocin 10 Units IM Estimated Blood Loss (ml): 25 Delivery QBL: 25 Maternal Complications: None Provider Comments: pt with strong urge to push after epidural placement and found to be c/c/1, continued pushing and quickly delivered a viable baby boy through nuchal cord x1. Baby with vigorous respiratory effort and cry with tactile stimulation and placed on maternal abdomen skin to skin. Cord allowed to stop pulsating then clamped x2 and cut by FOB (3vc noted). Placenta delivered spontaneously intact and sent to lab for eval. Vaginal and perineal inspection revealed no lacerations. Mother and Baby remain skin to skin, stable and bonding at this time. Nursery in room for delivery LABOR SUMMARY EDC: 02/24/2020 00:00 No. Babies in Womb: 1 Attempted: No Labor Anesthesia: Epidural LABOR INFORMATION Reason for Induction: Not Applicable Onset of Labor: 01/29/2020 15:45 Complete Dilatation: 01/29/2020 15:58 Oxytocin: Augmentation Group B Beta Strep: positive Antibiotics # of Doses: 2 Antibiotics Time of Last Dose: 1540 Name of Antibiotic Given: penicillin Steroids Given: Partial Course Reason Steroids Not Administered: Imminent Delivery MEMBRANES Membranes Rupture Method: Spontaneous Rupture of Membranes: 01/29/2020 03:00 Length of Rupture (hr): 13.50 Amniotic Fluid Color: Clear (Annotations: Per patient.) STAGES OF LABOR Stage 1 hr: 0 Stage 1 min: 13 Stage 2 hr: 0 Stage 2 min: 32 Stage 3 hr: 0 Stage 3 min: 5 Total Time in Labor hr: 0 Total Time in Labor min: 50 VAGINAL DELIVERY Episiotomy: None Laceration #1: None Laceration Extension #1: N/A Laceration #2: None Other Laceration: n/a Laceration Repair: Not Applicable Sponge Count Correct: N/A Sharps Count Correct: N/A CSECTION DELIVERY Primary Indication: N/A Secondary Indication: N/A CSection Incidence: N/A Labor: N/A Elective: N/A BABY A INFORMATION Infant Delivery Date/Time: 01/29/2020 16:30 Method of Delivery: Vaginal Nurse Controlled Delivery: No Born in Route : No : N/A Forceps: N/A Vacuum Extraction: N/A Shoulder Dystocia : No PRESENTATION/POSITION BABY A Presentation: Cephalic Cephalic Presentation: Vertex Vertex Position: Right Occipital Posterior Breech Presentation: N/A PLACENTA INFORMATION BABY A Placenta Delivery Time : 01/29/2020 16:35 Placenta Method of Delivery: Spontaneous Placenta Status: Delivered SCORES BABY A Heart Rate 1 min: >100 bpm Resp Effort 1 min: Good Cry Reflex Irritability 1 min: Cough or Sneeze or Pulls Away Muscle Tone 1 min: Some Flexion of Extremities Color 1 min: Blue/Pale Resuscitation Effort 1 min: Tactile Stimulation SCORE 1 MIN: 7 Heart Rate 5 min: >100 bpm Resp Effort 5 min: Good Cry Reflex Irritability 5 min: Cough or Sneeze or Pulls Away Muscle Tone 5 min: Active Motion Color 5 min: Body Odem, Extremities Blue SCORE 5 MIN: 9 INFORMATION BABY A Gestational Age at Delivery: 36.2 Gestational Status: Late - 34- 36.6 Weeks Outcome : Liveborn Condition : Stable Sex: Male IDENTIFICATION BABY A Infant Verification Date/Time: 01/29/2020 16:42 ID Band Number: [id number] Mother's Name Verified: Yes RN Verifying Infant: Ruslan Grande, VERONICA Additional Verifying Personnel: Yosvany Gonzalez RN WEIGHT/LENGTH BABY A Birthweight (gm): 3096 Infant Weight (lb): 6 Infant Weight (oz): 13 Length (in): 19.00 Length (cm): 48.26 CORD INFORMATION BABY A No. Cord Vessels: 3 Nuchal Cord : Around Neck x1, Loose Cord Blood Taken: Yes-For Storage (Mom's Blood type +) Infant Suction: Mouth; Nose ASSESSMENT BABY A Physical Findings at Delivery: Within Normal Limits Infant Respirations: Appears Normal Skin to Skin: Yes Skin to Skin Time (min): 60 Systems Test Engineer/ALS Called : No Infant Care By: lbursey Transferred To: [facility] BABY B INFORMATION : N/A SIGNATURES Assignment: Radha Craig MD Signature: with User ID: Casandra : with User ID: [email or web address]
[2020-01-29] MEDS: IBUPROFEN 800 MG TABLET PO SCH (21:41)
[2020-01-29] MEDS: FAMOTIDINE 20 MG TABLET PO SCH (21:41)
[2020-01-30] MEDS: IBUPROFEN 800 MG TABLET PO SCH ×3 (06:01→23:07)
[2020-01-30 07:11] LABS: MEAN CORPUSCULAR HEMOGLOBIN 19.8 pg (27.0-33.4); MEAN CORPUSCULAR HGB CONC 31.1 g/dL (32.0-36.0); MEAN CORPUSCULAR VOLUME 64 fl (80-97); PLATELET COUNT 214 10^3/uL (150-450); RED BLOOD COUNT 3.92 10^6/uL (3.72-5.28); RED CELL DISTRIBUTION WIDTH 17.3 % (11.5-14.0); WHITE BLOOD COUNT 19.8 10^3/uL (4.0-10.5)
[2020-01-30 07:48] LABS: HEMOGLOBIN 7.8 g/dL (12.0-15.5)
[2020-01-30 08:00] LABS: FERRITIN 4.27 ng/mL (6.2-137.0)
[2020-01-30 08:32] LABS: IRON(TIBC) < 10.1 ug/dL (37-170)
[2020-01-30] MEDS: FERROUS SULFATE 325 MG TABLET PO SCH ×2 (09:51→17:37)
[2020-01-30] MEDS: DOCUSATE SODIUM 100 MG CAPSULE PO SCH ×2 (09:51→17:37)
[2020-01-30] MEDS: SENNOSIDES/DOCUSATE 8.6-50 MG 1 EACH TABLET PO SCH (09:51)
[2020-01-30] MEDS: PRENATAL VITAMIN W DHA CAPSULE PO SCH (09:51)
[2020-01-30] MEDS: FAMOTIDINE 20 MG TABLET PO SCH ×2 (09:51→23:07)
[2020-01-30] MEDS ORDERED: FERRIC CARBOXYMALTOSE INJ 750 MG/15 ML VIAL IV ONE (11:02)
[2020-01-30] MEDS ORDERED: CYANOCOBALAMIN (VITAMIN B-12) INJ 1000 MCG/1 ML VIAL IM ONE (12:30)
[2020-01-30] MEDS ORDERED: FERRIC CARBOXYMALTOSE 750 MG in NORMAL SALINE 250 ML IV ONE (13:00)
[2020-01-30] MEDS: LEVOTHYROXINE SODIUM 0.075 MG TABLET PO SCH (13:32)
--- NOTE | 2020-01-30 14:47 | PDOC PROGRESS REPORT ---
Subjective-OB Progress Note for:: 01/30/20 Subjective: reports bleeding slowing,pain controlled with current meds, denies needs Physical Exam (OB) Vital Signs: Temp Pulse Resp BP Pulse Ox 97.8 F 64 16 117/63 99 01/30/20 07:49 01/30/20 07:49 01/30/20 07:49 01/30/20 07:49 01/30/20 07:49 Intake & Output 01/29/20 01/30/20 01/31/20 06:59 06:59 06:59 Intake Total 1000 240 Balance 1000 240 Weight 86 kg - Abdomen Description: Soft Fundal Description: Firm, Midline Fundal Height: u/u - u/2 - Abdominal Distension: No distension Tenderness: Nontender - Extremities Lower extremities: Fatimah's sign - neg Calf: Normal, Nontender Objective-Diagnostic Laboratory: 01/30/20 06:37 01/30/20 01/30/20 01/30/20 06:37 06:37 06:37 WBC 19.8 H RBC 3.92 Hgb 7.8 L Hct 25.0 L MCV 64 L MCH 19.8 L MCHC 31.1 L RDW 17.3 H Plt Count 214 Retic Count (auto) 1.80 Iron < 10.1 L TIBC 628 H Transferrin 528.24 H Ferritin 4.27 L Vitamin B12 181.0 L Folate 13.70 Assessment and Plan(PN) - Time Spent with Patient Time with patient: Less than 15 minutes - Disposition Anticipated Discharge: Home Within: within 24 hours
[2020-01-31] MEDS: LEVOTHYROXINE SODIUM 0.075 MG TABLET PO SCH (05:29)
[2020-01-31] MEDS: IBUPROFEN 800 MG TABLET PO SCH ×2 (05:31→13:45)
[2020-01-31 07:52] VITALS: BP 111/56
[2020-01-31] MEDS: FAMOTIDINE 20 MG TABLET PO SCH (09:40)
[2020-01-31] MEDS: PRENATAL VITAMIN W DHA CAPSULE PO SCH (09:40)
[2020-01-31] MEDS: DOCUSATE SODIUM 100 MG CAPSULE PO SCH (09:40)
[2020-01-31] MEDS: FERROUS SULFATE 325 MG TABLET PO SCH (09:40)
[2020-01-31] MEDS: SENNOSIDES/DOCUSATE 8.6-50 MG 1 EACH TABLET PO SCH (09:40)
--- NOTE | 2020-01-31 10:32 | PDOC DISCHARGE SUMMARY ---
Impression - Admit/DC Date/PCP Admission Date/Primary Care Provider: 01/29/20 11:05 LAURIE CORONA MD Discharge Date: 01/31/20 - PP Day #2, doing well, no complaints, A+, Rubella Immune, bottlefeeding - Discharge Diagnosis (1) 36 weeks gestation of Is this a current diagnosis for this admission?: Yes (2) Anxiety and depression Is this a current diagnosis for this admission?: Yes (3) Microcytic anemia Is this a current diagnosis for this admission?: Yes (4) delivery Is this a current diagnosis for this admission?: Yes (5) premature rupture of membranes Is this a current diagnosis for this admission?: Yes - Additional Information Resuscitation Status: Full Code Discharge Diet: As Tolerated, Regular Discharge Activity: Activity As Tolerated, No Lifting Over 10 Pounds, Pelvic Rest Referrals: LAURIE CORONA MD [Primary Care Provider] - Prescriptions: Ferrous Sulfate [Feosol 325 mg Tablet] 325 mg PO BID #60 tablet Ibuprofen [Motrin 800 mg Tablet] 800 mg PO Q8 #60 tablet Home Medications: Levothyroxine Sodium [Synthroid 0.075 mg Tablet] 0.075 mg PO DAILY 08/22/18 Vit No.130/Iron/Folic [ Tablet] 1 each PO DAILY 08/22/18 Ferrous Sulfate [Feosol 325 mg Tablet] 325 mg PO BID #60 tablet 01/31/20 Ibuprofen [Motrin 800 mg Tablet] 800 mg PO Q8 #60 tablet 01/31/20 HPI Reason(s) for Admission: Onset of Labor, Labor Procedures: Ultrasound Intrapartum Procedure(s): Spontaneous Vaginal Delivery Results Laboratory Results: WBC 19.8 10^3/uL (4.0-10.5) H 01/30/20 06:37 RBC 3.92 10^6/uL (3.72-5.28) 01/30/20 06:37 Hgb 7.8 g/dL (12.0-15.5) L 01/30/20 06:37 Hct 25.0 % (36.0-47.0) L 01/30/20 06:37 MCV 64 fl (80-97) L 01/30/20 06:37 MCH 19.8 pg (27.0-33.4) L 01/30/20 06:37 MCHC 31.1 g/dL (32.0-36.0) L 01/30/20 06:37 RDW 17.3 % (11.5-14.0) H 01/30/20 06:37 Plt Count 214 10^3/uL (150-450) 01/30/20 06:37 Lymph % (Auto) 15.9 % (13-45) 01/29/20 11:28 [place] % (Auto) 8.5 % (3-13) 01/29/20 11:28 Eos % (Auto) 0.8 % (0-6) 01/29/20 11:28 Baso % (Auto) 0.9 % (0-2) 01/29/20 11:28 Reticulocyte # 0.070 10^6/uL (0.028-0.122) 01/30/20 06:37 Absolute Neuts (auto) 7.8 10^3/uL (1.7-8.2) 01/29/20 11:28 Absolute Lymphs (auto) 1.7 10^3/uL (0.5-4.7) 01/29/20 11:28 Absolute Monos (auto) 0.9 10^3/uL (0.1-1.4) 01/29/20 11:28 Absolute Eos (auto) 0.1 10^3/uL (0.0-0.6) 01/29/20 11:28 Absolute Basos (auto) 0.1 10^3/uL (0.0-0.2) 01/29/20 11:28 Seg Neutrophils % 73.9 % (42-78) 01/29/20 11:28 Platelet Comment ADEQUATE 01/29/20 11:28 Polychromasia SLIGHT 01/29/20 11:28 Hypochromasia SLIGHT 01/29/20 11:28 Poikilocytosis SLIGHT 01/29/20 11:28 Anisocytosis 1+ 01/29/20 11:28 Microcytosis 3+ 01/29/20 11:28 Ovalocytes SLIGHT 01/29/20 11:28 Retic Count (auto) 1.80 % (0.66-2.85) 01/30/20 06:37 Iron < 10.1 ug/dL (37-170) L 01/30/20 06:37 TIBC 628 ug/dL (250-450) H 01/30/20 06:37 Iron Saturation UNABLE TO CALCULATE % (15% - 50%) 01/30/20 06:37 Transferrin 528.24 mg/dL (206.00-381.00) H 01/30/20 06:37 Ferritin 4.27 ng/mL (6.2-137.0) L 01/30/20 06:37 Vitamin B12 181.0 pg/mL (239-931) L 01/30/20 06:37 Folate 13.70 ng/mL (>2.76) 01/30/20 06:37 Urine Color YELLOW 01/29/20 10:29 Urine Appearance CLOUDY 01/29/20 10:29 Urine pH 7.0 (5.0-9.0) 01/29/20 10:29 Ur Specific [place] 1.014 01/29/20 10:29 Urine Protein 30 mg/dL (NEGATIVE) H 01/29/20 10:29 Urine Glucose (UA) NEGATIVE mg/dL (NEGATIVE) 01/29/20 10:29 Urine Ketones NEGATIVE mg/dL (NEGATIVE) 01/29/20 10:29 Urine Blood MODERATE (NEGATIVE) H 01/29/20 10:29 Urine Nitrite NEGATIVE (NEGATIVE) 01/29/20 10:29 Urine Bilirubin NEGATIVE (NEGATIVE) 01/29/20 10:29 Urine Urobilinogen NEGATIVE mg/dL (<2.0) 01/29/20 10:29 Ur Leukocyte Esterase SMALL (NEGATIVE) H 01/29/20 10:29 Urine Ascorbic Acid NEGATIVE (NEGATIVE) 01/29/20 10:29 Membranes Rupture POSITIVE (NEGATIVE) H 01/29/20 10:29 Urine Opiates Screen NEGATIVE 01/29/20 10:29 Urine Methadone Screen NEGATIVE 01/29/20 10:29 Ur Barbiturates Screen NEGATIVE 01/29/20 10:29 Ur Phencyclidine Scrn NEGATIVE 01/29/20 10:29 Ur Amphetamines Screen NEGATIVE 01/29/20 10:29 U Benzodiazepines Scrn NEGATIVE 01/29/20 10:29 Urine Cocaine Screen NEGATIVE 01/29/20 10:29 U Marijuana (THC) Screen NEGATIVE 01/29/20 10:29 RPR NONREACTIVE (NONREACTIVE) 01/29/20 11:28 Chlamydia DNA (PCR) NOT DETECTED (NOT DETECT) 01/29/20 10:09 N.gonorrhoeae DNA (PCR) NOT DETECTED (NOT DETECT) 01/29/20 10:09 Slides for Path Review SEE COMMENT 01/29/20 11:28 Blood Type A POSITIVE 01/29/20 11:28 Antibody Screen NEGATIVE 01/29/20 11:28 Plan Plan of Treatment: Iron rich foods, d/c home, f/up with [facility] in 4 wks Time Spent: Less than 30 Minutes
== END 2020-01-31 18:08 | disposition home or self-care (01) | DRG 807 ==
LOC: LC 10:19 → LR 11:05 → 2S 18:40
PROVIDERS: ADMIT Student in an Organized Health Care Education/Training Program; ATTEND Student in an Organized Health Care Education/Training Program
PROC: 10E0XZZ Delivery of Products of Conception, External Approach (ICD-10-PCS; principal; 2020-01-29)
DX: O60.14X0 Preterm labor third trimester with preterm delivery third trimester, not applicable or unspecified (principal); Z37.0 Single live birth; O62.3 Precipitate labor; O69.81X0 Labor and delivery complicated by cord around neck, without compression, not applicable or unspecified; O99.824 Streptococcus B carrier state complicating childbirth; O99.344 Other mental disorders complicating childbirth; F41.8 Other specified anxiety disorders; Z3A.36 36 weeks gestation of pregnancy
CPT/HCPCS: 1967; 36415; 80307; 81005; 82607; 82728; 82746; 83540; 83550; 84112; 84466; 85025; 85027; 85045; 86592; 86850; 86900; 86901; 87081; 87491; 87591; 88307; 94760; 96372; J0702; J2540; J2590; J3010; J3490; J7060